=== PATIENT | female | born 1960 | race Caucasian/White ===

== ENCOUNTER 2018-03-05 06:22 | Observation (INO) | payer BC ==
[2018-02-27 13:15] LABS: Basophils % (Auto) 0.7 % (0.0-1.8); Eosinophils # (Auto) 0.1 K/mm3 (0.0-0.4); Eosinophils % (Auto) 1.1 % (0.0-4.3); Hematocrit 40.7 % (30.3-42.9); Hemoglobin 13.6 gm/dl (10.1-14.3); Lymphocytes # (Auto) 2.1 K/mm3 (1.2-5.4); Lymphocytes % (Auto) 29.7 % (13.4-35.0); Mean Corpuscular HGB Conc 33 % (30-34); Mean Corpuscular Hemoglobin 30 pg (28-32); Mean Corpuscular Volume 91 fl (79-97); Monocytes # (Auto) 0.4 K/mm3 (0.0-0.8); Monocytes % (Auto) 5.9 % (0.0-7.3); Platelet Count 258 K/mm3 (140-440); Red Blood Count 4.48 M/mm3 (3.65-5.03)
--- NOTE | 2018-02-27 13:18 | Anesthesia Consultation ---
Anesthesia Consult and Med Hx Date of service: 03/05/18 - Airway Anesthetic Teeth Evaluation: Good ROM Head & Neck: Adequate Mental/Hyoid Distance: Adequate Mallampati Class: Class I Intubation Access Assessment: Good - Pulmonary Exam CTA: Yes - Cardiac Exam Cardiac Exam: RRR - Pre-Operative Health Status ASA Pre-Surgery Classification: ASA2 Proposed Anesthetic Plan: General Nerve Block: TAP - Cardiovascular System Hx Hypertension: Yes (not on meds) - Central Nervous System Hx Psychiatric Problems: No - Hematic Hx Anemia: Yes - Other Systems Hx Cancer: No Hx Obesity: Yes - Additional Comments Anesthesia Medical History Comments: arthritis
--- NOTE | 2018-03-05 06:24 | History and Physical Report ---
History of Present Illness Date of examination: 03/05/18 Date of admission: 03/05/2018 Chief complaint: pelvic mass History of present illness: 57y/o with a persistent left pelvic mass. The mass was originally presumed to be a necrosing leiomyoma but now appears similar to a dermoid tumor. She reports pain and discomfort. The mass has been present for over a year without any change in size. She elects for definitive surgical management Past History Past Medical History: high cholesterol, other (arthritis) Past Surgical History: other (BTL) Social history: - Obstetrical History : 5 Para: 4 Hx # Term Pregnancies: 4 Number of Pregnancies: 0 Spontaneous Abortions: 1 Induced : 0 Number of Living Children: 4 Medications and Allergies Allergies Allergy/AdvReac Type Severity Reaction Status Date / Time No Known Allergies Allergy Unverified 02/26/18 17:50 Home Medications Medication Instructions Recorded Confirmed Last Taken Type No Known Home Medications [No 02/26/18 02/26/18 Unknown History Reported Home Medications] Active Meds: Active Medications Cefazolin Sodium (Ancef/Sterile Water 2 Gm/20 Ml) 2 gm in 20 mls @ 80 mls/hr IV PREOP MAXINE; Protocol Review of Systems Gastrointestinal: abdominal pain - Vital Signs Vital signs: Vital Signs Temp Pulse Resp BP 99.1 F 72 18 140/76 02/27/18 12:45 02/27/18 12:45 02/27/18 12:45 02/27/18 12:45 Temp Pulse Resp BP Pulse Ox 99.1 F 72 18 140/76 02/27/18 12:45 02/27/18 12:45 02/27/18 12:45 02/27/18 12:45 - Physical Exam Breasts: Positive: deferred Cardiovascular: Regular rate Lungs: Positive: Clear to auscultation Abdomen: Positive: normal appearance Results Result Diagrams: 02/27/18 12:55 All other labs normal. Assessment and Plan - Patient Problems (1) Dermoid tumor Status: Acute Plan to address problem: scheduled for a robotic hysterectomy and BSO (2) Pelvic pain in female Status: Acute (3) Pelvic mass in female Status: Acute
[2018-03-05] MEDS ORDERED: ANCEF/STERILE WATER 2 GM/20 ML 2 GM/20 ML SYRINGE IV SCH (07:00)
[2018-03-05] MEDS ORDERED: DIPRIVAN 10 MG/ML IV ONE (07:13)
[2018-03-05] MEDS ORDERED: DILAUDID ONE ×2 (07:14→09:28)
[2018-03-05] MEDS ORDERED: XYLOCAINE MPF 2% ONE (07:16)
[2018-03-05] MEDS ORDERED: DECADRON ONE (07:16)
[2018-03-05] MEDS ORDERED: ZEMURON IV ONE (07:16)
[2018-03-05] MEDS ORDERED: ZOFRAN ONE (07:16)
[2018-03-05] MEDS ORDERED: LACTATED RINGERS 1,000 ML IV SCH (07:30)
[2018-03-05] MEDS ORDERED: NEOSPORIN GU IR ONE ×2 (07:49→09:21)
[2018-03-05] MEDS ORDERED: THROMBIN (BOVINE) TP ONE ×2 (07:49→09:21)
[2018-03-05] MEDS ORDERED: GELFOAM POWDER 1GM MM ONE ×2 (07:49→09:21)
[2018-03-05] MEDS ORDERED: DEMEROL IV PRN (08:13)
[2018-03-05] MEDS ORDERED: TORADOL IV PRN (08:13)
[2018-03-05] MEDS ORDERED: ZOFRAN IV PRN (08:13)
[2018-03-05] MEDS ORDERED: TYLENOL PO PRN (08:13)
[2018-03-05] MEDS ORDERED: DILAUDID IV PRN (08:13)
[2018-03-05] MEDS ORDERED: NARCAN 0.4 MG/1 ML IV PRN ×2 (08:13→11:34)
--- NOTE | 2018-03-05 08:13 | Anesthesia Day of Surgery ---
Anesthesia Day of Surgery - Day of Surgery Patient Examined: Yes Patient H&P Reviewed: Yes Patient is NPO: Yes
[2018-03-05] MEDS ORDERED: MARCAINE 0.5% 30 ML INFILTRATI ONE (09:13)
[2018-03-05] MEDS ORDERED: MARCAINE 0.5% INFILTRATI ONE (09:20)
[2018-03-05] MEDS ORDERED: NACL 0.9% IR ONE ×2 (09:20→09:21)
[2018-03-05] MEDS ORDERED: NACL 0.9% 1000 ML 1,000 ML ONE (09:26)
[2018-03-05] MEDS ORDERED: AMBIEN PO PRN (11:40)
[2018-03-05] MEDS ORDERED: MILK OF MAGNESIA PO PRN (11:40)
[2018-03-05] MEDS ORDERED: MOTRIN PO PRN (11:40)
[2018-03-05] MEDS ORDERED: PERCOCET 5/325 PO PRN (11:40)
--- NOTE | 2018-03-05 11:53 | Operative Report ---
Operative Report Operative Report: Date of surgery: 03/05/2018 Preoperative diagnoses: Pelvic mass and pelvic pain Postoperative diagnoses: Degenerated leiomyoma Procedure: Robotic hysterectomy and bilateral salpingo-oophorectomy; lysis of adhesions Surgeon: Jaye Chun M.D. Car Dryer: Vernell Padilla Anesthesia: Gen. endotracheal anesthesia Estimated blood loss: 100 mL Pathology: Degenerated leiomyoma, uterine corpus, cervix, bilateral tubes and ovaries Indication: 57-year-old 014 with a history of a central pelvic mass. The mass been present for over 2 years and the patient was experiencing worsening in her pelvic pain and pressure. Procedure: The patient was taken to the operating room and given general endotracheal anesthesia without complication. She is prepped and draped in a normal sterile fashion. A bivalve speculum was placed in the patient's vagina and a single- tooth tenaculum placed on the anterior lip of the cervix. The uterus was sounded with the uterine sound. A [employer] uterine manipulator was placed in the bivalve speculum was then removed. Attention was then turned to the patient's abdomen where a 12 millimeter supra umbilical skin incision was then made. A Veress needle was placed and peritoneal entry was verified water-filled syringe. Insufflation of the peritoneal cavity was performed with CO2 gas. The 12 mm trocar was then placed under direct visualization. An additional 8 mm trocar was placed on the patient's left and right lateral side just opposite of the supraumbilical trocar. An additional 5 mm right lateral trocar was then placed as the accessory port. The José Miguel Mejia device was used to close the fascia of the 12 mm incision. The patient was then placed in steep Trendelenburg. The da Valente robot was then engaged. A fenestrated forcep was placed in arm 2 and a vessel sealer was placed in arm 1. The surgeon then transferred to the surgical console. Gen. survey of abdomen and pelvis revealed a significantly enlarged uterus. The tubes and ovaries were normal in appearance bilaterally. The uterus had findings of an enlarged leiomyoma. The infundibulopelvic ligament was then isolated on the right. The vessel sealer was used to coagulate the ligament which was then transected. The tube and ovary were transected from the supply. The round ligament was then coagulated and transected also. The vesicouterine peritoneum was then entered from the patient's right side. The uterine vessels were then coagulated with the vessel sealer. The vessels were then transected . Attention was then turned to the patient's left side where the infundibulopelvic ligament and mesosalpinx were again isolated coagulated and transected. Lysis of adhesions was performed of omental adhesions to the left lateral aspect of the uterus. The vesical peritoneum was then entered from the left and joined in the midline. Peritoneum was reflected off of the lower uterine segment. Uterine vessels were then coagulated and then transected. The blood supply to the uterus was adequately contained. Secondary to the large size of the uterus the cervix could not be adequately visualized. The corpus of the uterus was amputated from the cervical stump to improve visualization with the monopolar scissors. A posterior colpotomy was made. The V care ring was visualized. Posterior colpotomy was created with the monopolar scissors. The incision was continued circumferentially until anterior colpotomy was made. The cervix was amputated from the vaginal cuff. The cervix was then removed through the vagina. A warm laparotomy sponge was placed to maintain the pneumoperitoneum. The degenerated myoma had to be excised from the uterus in order to decompress the size of the uterus. The monopolar scissors were used to incise the serosa overlying the leiomyoma. The leiomyoma was then grasped with a tenaculum for retraction. The leiomyoma was then removed from the uterine bed. Secondary to the large size of the degenerated leiomyoma it had to undergo further decompression. The monopolar scissors were used to excise the leiomyoma to facilitate removal through the vagina. The remaining uterus tubes and ovaries were then placed in the vagina. A vaginal morcellation of the uterus had to be performed secondary to the large size for extraction of the uterus from the vagina. The warm laparotomy sponge was then replaced to maintain the pneumoperitoneum. The vaginal cuff was then closed in a running fashion with V lock suture. Irrigation of the pelvis was performed. Gelfoam with thrombin was applied to the incision. The skin was then reapproximated with 4-0 Monocryl. The tissue was sent to pathology which included the cervix, uterus, degenerated leiomyoma, tubes and ovaries. The patient was then successfully extubated. She was then taken to the recovery room in stable condition. All sponge laps and needle counts were correct x2.
[2018-03-05] MEDS ORDERED: D5LR 1,000 ML IV SCH (12:00)
[2018-03-05] MEDS ORDERED: MORPHINE PCA 30MG/30ML IV SCH (12:00)
[2018-03-05] MEDS: TORADOL IV SCH (18:50)
[2018-03-06] MEDS: TORADOL IV SCH ×3 (00:05→12:10)
[2018-03-06 07:10] LABS: Hematocrit 33.7 % (30.3-42.9); Hemoglobin 11.9 gm/dl (10.1-14.3)
--- NOTE | 2018-03-06 08:40 | Progress Note ---
Assessment and Plan - Patient Problems (1) Dermoid tumor Current Visit: Yes Status: Acute Plan to address problem: The patient was doing well Discharge home today. (2) Pelvic pain in female Current Visit: Yes Status: Acute (3) Pelvic mass in female Current Visit: Yes Status: Acute Subjective - Subjective Date of service: 03/06/18 Interval history: The patient is without complaints. She tolerated a clear diet without complication. The details of the surgery were discussed with the patient. Patient reports: appetite normal, voiding normally, pain well controlled Objective - Vital Signs Latest vital signs: Vital Signs Temp Pulse Resp BP BP Pulse Ox 03/06/18 05:10 98.4 F 92 H 16 147/75 03/05/18 23:22 99.3 F 108 H 18 115/68 03/05/18 20:49 99 F 108 H 20 141/75 03/05/18 13:50 97.8 F 84 16 133/73 97 03/05/18 13:10 97.8 F 81 16 133/73 97 03/05/18 12:50 14 03/05/18 12:45 97.9 F 81 13 137/76 100 03/05/18 12:30 83 14 143/79 99 03/05/18 12:25 13 03/05/18 12:15 87 16 133/80 100 03/05/18 12:00 91 H 14 117/78 97 03/05/18 11:55 90 13 116/76 94 03/05/18 11:50 91 H 21 123/72 94 03/05/18 11:44 98.0 F 93 H 12 129/71 93 Intake and Output 03/05/18 03/06/18 03/06/18 22:59 06:59 14:59 Intake Total 240 180 Output Total 600 1000 Balance -360 -820 Intake: Intake, Free Water 240 180 Output: Urine 600 1000 Indwelling Catheter 600 1000 Other: Total, Output Amount 600 1000 Weight 78.018 kg - Exam Uterus: Present: normal, firm Incision: Present: normal
--- NOTE | 2018-03-06 08:42 | Discharge Summary ---
Providers - Providers Date of Admission: 03/05/18 11:40 Date of discharge: 03/06/18 Attending physician: SARAH FIELDS Primary care physician: SARAH FIELDS Hospitalization Reason for admission: other (pelvic mass) Procedure: other (robotic hysterectomy and bilateral salpingo-oophorectomy) Incision: normal Discharge diagnosis: other (degenerated fibroid) Hospital course: The patient was admitted the day of surgery and underwent a robotic hysterectomy and bilateral salpingo-oophorectomy. Please see operative note for details of surgery. Postoperative course was unremarkable. Condition at discharge: Good Disposition: [id number] TO HOME OR SELFCARE - Discharge Diagnoses (1) Dermoid tumor Status: Acute (2) Pelvic pain in female Status: Acute (3) Pelvic mass in female Status: Acute Plan - Discharge Medications Prescriptions: Docusate Sodium [Colace] 100 mg PO BID PRN #60 capsule PRN Reason: Constipation Ibuprofen [Motrin] 800 mg PO Q8HR PRN #60 tablet PRN Reason: Pain Oxycodone HCl/Acetaminophen [Percocet 7.5/325 mg] 1 each PO Q6HR PRN #45 tablet PRN Reason: Pain - Provider Discharge Summary Activity: no sex for 6 weeks, no heavy lifting 4 weeks, no strenuous exercise Diet: routine Instructions: routine Additional instructions: [] Smoking cessation referral if applicable(refer to patient education folder for contact #) [] Refer to [facility]'s [facility] Booklet Call your doctor immediately for: * Fever > 100.5 * Heavy vaginal bleeding ( >1 pad per hour) * Severe persistent headache * Shortness of breath * Reddened, hot, painful area to leg or breast * Drainage or odor from incision. * Keep incision clean and dry at all times and follow doctor's instructions regarding bathing/showering Scheduled follow-up with Dr. Lund in 4 weeks - Follow up plan
[2018-03-06 13:26] VITALS: BP 115/64
== END 2018-03-06 14:15 | disposition home or self-care (01) ==
LOC: OR 06:22 → OB 11:40
PROVIDERS: ADMIT Obstetrics & Gynecology; ATTEND Obstetrics & Gynecology
DX: D25.9 Leiomyoma of uterus, unspecified (principal)
CPT/HCPCS: 36415; 58552; 84703; 85014; 85018; 85025; 86850; 86900; 86901; 88307; 96374; 96376; A4217; A4649; G0378; J0690; J1100; J1170; J1885; J2270; J2405; J2704; J7030; J7120; J7121; S2900